=== PATIENT | female | born 1980 | race Caucasian/White ===

== ENCOUNTER 2018-06-14 18:37 | Emergency (ER) | payer OTHER ==
[~2018-06-14] VITALS: Ht 162.6 cm; Wt 68.0 kg
[2018-06-14 18:40] VITALS: BP_SYST 145
--- NOTE | 2018-06-14 18:45 | NUR ---
Patient triaged and placed in waiting room. VSS and patient appears in no acute distress at this time. Accompanied by self, awaiting available bed, and MD notified of need for MSE.
--- NOTE | 2018-06-14 20:45 | NUR ---
ER at bedside examining patient.
--- NOTE | 2018-06-14 21:10 | NUR ---
Patient given written and verbal discharge instructions and verbalizes understanding. ER Dr Cookie PIKE discussed with patient the results and treatment provided. Patient in stable condition. ID arm band removed. Rx of ibuprofen and tramadol given. Patient educated on pain management and to follow up with PMD. Pain Scale . Opportunity for questions provided and answered. Medication side effect fact sheet provided.
[2018-06-14 21:19] VITALS: BP_SYST 145
== END 2018-06-14 21:10 | disposition home or self-care (01) ==
LOC: SED 18:37
DX: S16.1XXA Strain of muscle, fascia and tendon at neck level, initial encounter (principal); S50.11XA Contusion of right forearm, initial encounter; S20.219A Contusion of unspecified front wall of thorax, initial encounter; R03.0 Elevated blood-pressure reading, without diagnosis of hypertension; E11.9 Type 2 diabetes mellitus without complications; Z90.49 Acquired absence of other specified parts of digestive tract; V89.2XXA Person injured in unspecified motor-vehicle accident, traffic, initial encounter; Y93.89 Activity, other specified; Y92.410 Unspecified street and highway as the place of occurrence of the external cause; Y99.8 Other external cause status
CPT/HCPCS: 73090; 99283